=== PATIENT | male | born 2000 | race Two or more races ===

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

== ENCOUNTER 2018-03-08 19:57 | Emergency (ER) | payer OTHER ==
[~2018-03-08] VITALS: Ht 177.8 cm; Wt 85.3 kg
[2018-03-08 20:15] VITALS: BP 123/85
== END 2018-03-09 01:00 | disposition home or self-care (01) ==
LOC: ER 19:57
DX: S62.336A Displaced fracture of neck of fifth metacarpal bone, right hand, initial encounter for closed fracture (principal); M25.562 Pain in left knee; Y08.89XA Assault by other specified means, initial encounter; Y93.89 Activity, other specified; Y92.89 Other specified places as the place of occurrence of the external cause; Y99.8 Other external cause status
CPT/HCPCS: 29125; 73100; 73120; 73560

== ENCOUNTER 2019-07-30 19:24 | Emergency (ER) | payer OTHER ==
[~2019-07-30] VITALS: Ht 177.8 cm; Wt 81.6 kg
[2019-07-30 19:31] VITALS: BP 110/54
[2019-07-30] MEDS ORDERED: IBUPROFEN 600 MG TAB PO ONE (19:45)
== END 2019-07-30 21:09 | disposition home or self-care (01) ==
LOC: ER 19:25
DX: J03.90 Acute tonsillitis, unspecified (principal)

== ENCOUNTER 2019-11-01 14:22 | Emergency (ER) | payer OTHER ==
[~2019-11-01] VITALS: Ht 177.8 cm; Wt 86.2 kg
[2019-11-01 16:14] LABS: Hepatitis B Surface Antibody Positive
[2019-11-01] MEDS: BACITRACIN TOP OINT 1 UD PKG TOP ONE (17:36)
[2019-11-01 17:37] VITALS: BP 119/72
== END 2019-11-01 17:32 | disposition home or self-care (01) ==
LOC: ER 14:29 → EEVIPCON 14:29 → ER 17:32
DX: S50.811A Abrasion of right forearm, initial encounter (principal); R07.81 Pleurodynia; Y04.1XXA Assault by human bite, initial encounter; Y93.89 Activity, other specified; Y92.89 Other specified places as the place of occurrence of the external cause; Y99.8 Other external cause status
CPT/HCPCS: 36415; 71101; 73130; 86703; 86706; 86803; 87340

== ENCOUNTER → 2019-12-21 | Outpatient (CLI) | payer OTHER ==
[2019-12-22 09:52] LABS: Hepatitis B Surface Antibody Positive
[2019-12-22 11:30] LABS: Hepatitis B Surface Antigen Negative (Negative)
== END | disposition home or self-care (01) ==
LOC: LAB 14:34
PROVIDERS: ATTEND Preventive Medicine Preventive Medicine/Occupational Environmental Medicine
DX: S51.851A Open bite of right forearm, initial encounter (principal); X58.XXXA Exposure to other specified factors, initial encounter; Y93.89 Activity, other specified; Y92.89 Other specified places as the place of occurrence of the external cause; Y99.8 Other external cause status; Z77.21 Contact with and (suspected) exposure to potentially hazardous body fluids
CPT/HCPCS: 36415; 86703; 86706; 86803; 87340

== ENCOUNTER → 2020-01-24 | Outpatient (CLI) | payer BC ==
[2020-01-24 14:09] LABS: Basophils # (auto) 0 10 ^3/uL (0-0.2); Basophils % (auto) 0.4 % (0.0-2.0); Eosinophils # (auto) 0.1 10 ^3/uL (0-0.8); Eosinophils % (auto) 1.7 % (0.0-7.0); Hematocrit 49.2 % (41.0-53.0); Hemoglobin 16.8 g/dL (13.5-17.5); Lymphocytes % (auto) 28.3 % (10.0-50.0); Mean Corpuscular Hemoglobin 30.7 pg (28.0-32.0); Mean Corpuscular Hgb Conc. 34.1 g/dL (32.0-36.0); Monocytes # (auto) 0.5 10 ^3/uL (0-1.3); Monocytes % (auto) 7.5 % (0.0-12.0); Neutrophils # (auto) 4.3 10 ^3/uL (1.6-8.6); Neutrophils % (auto) 62.1 % (37.0-80.0); Platelet Count (auto) 217 10^3/uL (140-450); Red Blood Cells 5.47 10^6/uL (4.5-5.90); Red Cell Distribution Width 13.5 % (11.8-14.3); White Blood Cell 6.9 10^3/uL (4.4-10.8)
[2020-01-24 14:39] LABS: Albumin 4.2 g/dL (3.4-5.0); Calcium 9.5 mg/dL (8.5-10.1)
[2020-01-24 14:44] LABS: Bilirubin, Total 0.5 mg/dL (0.2-1.0); Total Protein 8.1 g/dL (6.4-8.2)
[2020-01-26 09:15] LABS: Hepatitis B Surface Antibody Positive
[2020-01-26 09:50] LABS: Hepatitis A Total Antibody Positive
[2020-01-26 10:11] LABS: Hepatitis B Core Total AB Negative; Hepatitis B Surface Antigen Negative (Negative); Hepatitis C Antibody Negative (Negative)
== END | disposition home or self-care (01) ==
LOC: LAB 13:54
PROVIDERS: ATTEND Internal Medicine
DX: R21 Rash and other nonspecific skin eruption (principal)
CPT/HCPCS: 36415; 80053; 80061; 85025; 86703; 86704; 86706; 86708; 86803; 87340

== ENCOUNTER → 2020-02-22 | Outpatient (CLI) | payer BC | END | disposition home or self-care (01) | LOC: LAB 11:52 | PROVIDERS: ATTEND Internal Medicine | DX: R89.4 Abnormal immunological findings in specimens from other organs, systems and tissues (principal); Z72.51 High risk heterosexual behavior | CPT/HCPCS: 86695; 86696; 86703 ==

== ENCOUNTER → 2020-03-27 | Outpatient (CLI) | payer OTHER | END | disposition home or self-care (01) | LOC: LAB 18:00 | PROVIDERS: ATTEND Nurse Practitioner Family | DX: Z03.818 Encounter for observation for suspected exposure to other biological agents ruled out (principal) ==

== ENCOUNTER → 2020-05-24 | Outpatient (CLI) | payer BC ==
[2020-05-24 08:34] LABS: Urine WBC None Seen /hpf (0 - 3)
[2020-05-24 09:08] LABS: Urine Bacteria NONE SEEN /hpf (None Seen); Urine Blood Negative /uL (Negative); Urine Specific Gravity 1.018 (1.001-1.035)
[2020-05-24 09:30] LABS: Albumin 4.1 g/dL (3.4-5.0); CRP High Sensitivity 0.06 mg/dL (< 0.3); Calcium 8.9 mg/dL (8.5-10.1); Potassium 3.8 mmol/L (3.5-5.1)
[2020-05-24 09:33] LABS: BUN/Creatinine Ratio 13.5; Bilirubin, Total 0.5 mg/dL (0.2-1.0); Total Protein 7.9 g/dL (6.4-8.2)
== END | disposition home or self-care (01) ==
LOC: LAB 08:16
PROVIDERS: ATTEND Internal Medicine
DX: K21.9 Gastro-esophageal reflux disease without esophagitis (principal); R10.9 Unspecified abdominal pain
CPT/HCPCS: 36415; 80053; 81001; 85652; 86141; 86677; 86703

== ENCOUNTER → 2020-05-24 | Outpatient (CLI) | payer OTHER | END | disposition home or self-care (01) | LOC: LAB 11:55 | PROVIDERS: ATTEND Nurse Practitioner Family | DX: Z20.828 Contact with and (suspected) exposure to other viral communicable diseases (principal) ==

== ENCOUNTER → 2020-09-05 | Outpatient (CLI) | payer BC ==
[2020-09-05 15:13] LABS: Basophils # (auto) 0 10 ^3/uL (0-0.2); Basophils % (auto) 0.5 % (0.0-2.0); Eosinophils # (auto) 0.1 10 ^3/uL (0-0.8); Eosinophils % (auto) 1.3 % (0.0-7.0); Hematocrit 44.5 % (41.0-53.0); Lymphocytes # (auto) 2.5 10 ^3/uL (0.4-5.4); Lymphocytes % (auto) 26.8 % (10.0-50.0); Mean Corpuscular Hgb Conc. 33.8 g/dL (32.0-36.0); Mean Corpuscular Volume 88.8 fL (80.0-100.0); Monocytes # (auto) 0.6 10 ^3/uL (0-1.3); Monocytes % (auto) 6.9 % (0.0-12.0); Neutrophils # (auto) 5.9 10 ^3/uL (1.6-8.6); Neutrophils % (auto) 64.5 % (37.0-80.0); Platelet Count (auto) 246 10^3/uL (140-450); Red Blood Cells 5.01 10^6/uL (4.5-5.90); Red Cell Distribution Width 13.3 % (11.8-14.3); White Blood Cell 9.2 10^3/uL (4.4-10.8)
[2020-09-05 15:37] LABS: Albumin 3.8 g/dL (3.4-5.0); BUN/Creatinine Ratio 14.3; Calcium 8.7 mg/dL (8.5-10.1); Potassium 3.7 mmol/L (3.5-5.1)
[2020-09-05 15:40] LABS: Bilirubin, Total 0.4 mg/dL (0.2-1.0); Total Protein 7.1 g/dL (6.4-8.2)
== END | disposition home or self-care (01) ==
LOC: LAB 14:43
PROVIDERS: ATTEND Internal Medicine Gastroenterology
DX: K21.9 Gastro-esophageal reflux disease without esophagitis (principal); R10.84 Generalized abdominal pain
CPT/HCPCS: 36415; 80053; 82150; 83690; 85025

== ENCOUNTER → 2020-09-05 | Outpatient (CLI) | payer OTHER ==
[2020-09-06 10:53] LABS: Hepatitis B Surface Antibody Positive
[2020-09-06 13:27] LABS: Hepatitis B Surface Antigen Negative (Negative)
== END | disposition home or self-care (01) ==
LOC: LAB 14:39
PROVIDERS: ATTEND Nurse Practitioner
DX: S51.851A Open bite of right forearm, initial encounter (principal); X58.XXXA Exposure to other specified factors, initial encounter; Y93.89 Activity, other specified; Y92.89 Other specified places as the place of occurrence of the external cause; Y99.8 Other external cause status
CPT/HCPCS: 36415; 86703; 86706; 86803; 87340

== ENCOUNTER → 2020-09-27 | Outpatient (CLI) | payer BC | END | disposition home or self-care (01) | LOC: LAB 08:27 | PROVIDERS: ATTEND Internal Medicine Gastroenterology | DX: K21.00 Gastro-esophageal reflux disease with esophagitis, without bleeding (principal); R10.84 Generalized abdominal pain | CPT/HCPCS: 82270 ==